=== PATIENT | male | born 1995 ===

== ENCOUNTER 2018-03-04 19:36 | Emergency (ER) | payer MEDICAID ==
[2018-03-04 19:44] VITALS: BP 103/70; PULSE 116; RESP 18; O2SAT 96
[2018-03-04] MEDS ORDERED: Sodium Chloride 0.9% 1,000 ML IV ONE ×2 (19:58)
--- NOTE | 2018-03-04 20:02 | C.PDOC ---
History Of Present Illness <Anand Muller - Last Filed: 03/04/18 22:26> <Payton Dominguez - Last Filed: 03/07/18 12:33> 22 year old male presents to the ED c/o diarrhea for the past 4-5 days. Patient states he came from [facility] one week ago. Patient denies any pain at this time. Patient denies fever, chills, nausea, vomit, abdominal dysuria, hematuria. (Anand Muller) History Per: Patient History/Exam Limitations: no limitations Onset/Duration Of Symptoms: Days Current Symptoms Are (Timing): Still Present Location Of Pain/Discomfort: Diffuse Quality Of Discomfort: "Pain" Associated Symptoms: Diarrhea. denies: Nausea, Vomiting, Urinary Symptoms Alleviating Factors: None Recent travel outside of the [place]: Yes ([facility] 1 week ago) Additional History Per: Patient <Anand Muller - Last Filed: 03/04/18 22:26> <Silvia Dominguezerie - Last Filed: 03/07/18 12:33> Chief Complaint (Nursing): GI Problem Past Medical History Reviewed: Historical Data, Nursing Documentation, Vital Signs - Medical History PMH: No Chronic Diseases Surgical History: No Surg Hx Family History: States: Unknown Family Hx - Social History Hx Alcohol Use: Yes Hx Substance Use: Yes - Immunization History Hx Tetanus Toxoid Vaccination: No Hx Influenza Vaccination: No Hx Pneumococcal Vaccination: No <Anand Muller - Last Filed: 03/04/18 22:26> Vital Signs: Last Vital Signs Temp 99.7 F H 03/04/18 20:57 Pulse 116 H 03/04/18 19:41 Resp 18 03/04/18 19:41 BP 103/70 03/04/18 19:41 Pulse Ox 96 03/04/18 22:26 Review Of Systems Constitutional: Negative for: Fever, Chills Cardiovascular: Negative for: Chest Pain Respiratory: Negative for: Shortness of Breath Gastrointestinal: Positive for: Diarrhea. Negative for: Nausea, Vomiting, Abdominal Pain Genitourinary: Negative for: Dysuria, Hematuria Skin: Negative for: Rash <Anand Muller - Last Filed: 03/04/18 22:26> Physical Exam - Physical Exam Appears: Non-toxic, No Acute Distress Skin: Normal Color, Warm, Dry Head: Atraumatic, Normacephalic Eye(s): bilateral: Normal Inspection Oral Mucosa: Moist Neck: Normal ROM, Supple Chest: Symmetrical Cardiovascular: Rhythm Regular Respiratory: No Normal Breath Sounds, No Rales, No Rhonchi, No Wheezing Gastrointestinal/Abdominal: Bowel Sounds (hyperactive), Soft, Tenderness (mild LUQ), No Guarding, No Rebound Back: No CVA Tenderness Extremity: Normal ROM, No Tenderness, No Swelling Neurological/Psych: Oriented x3, Normal Speech Gait: Steady <Anand Muller R - Last Filed: 03/04/18 22:26> ED Course And Treatment - Laboratory Results Result Diagrams: 03/04/18 20:02 03/04/18 20:02 O2 Sat by Pulse Oximetry: 96 (ON RA) Pulse Ox Interpretation: Normal <Anand Muller R - Last Filed: 03/04/18 22:26> - Laboratory Results Result Diagrams: 03/04/18 20:02 03/04/18 20:02 <Payton Dominguez - Last Filed: 03/07/18 12:33> Medical Decision Making <Anand Muller R - Last Filed: 03/04/18 22:26> <Payton Dominguez - Last Filed: 03/07/18 12:33> Medical Decision Making: Plan: * Labs * IV fluids * Tylenol 975 mg PO * Stool culture * Urine culture * UA (Irena Mullerel R) Disposition Counseled Patient/Family Regarding: Diagnosis - Disposition Disposition Time: 22:23 - POA Present On Arrival: None <RenzoIrenaAnand R - Last Filed: 03/04/18 22:26> <Payton Dominguez - Last Filed: 03/07/18 12:33> - Disposition Referrals: Non [facility] Provider, [Non-Staff] - [facility] [Outside] Disposition: HOME/ ROUTINE Condition: STABLE Prescriptions: Ciprofloxacin [Cipro] 1 tab PO BID #14 tab Instructions: Diarrhea and Traveler's Diarrhea, Adult (DC), Acetaminophen Forms: [employer] (Turkish) - Clinical Impression Clinical Impression: Gastroenteritis, Infectious diarrhea in adult patient - Scribe Statement The provider has reviewed the documentation as recorded by the Scribe <Anand Muller R - Last Filed: 03/04/18 22:26> <Payton Dominguez - Last Filed: 03/07/18 12:33> - Scribe Statement Carlos Nascimento All medical record entries made by the Scribe were at my direction and personally dictated by me. I have reviewed the chart and agree that the record accurately reflects my personal performance of the history, physical exam, medical decision making, and the department course for this patient. I have also personally directed, reviewed, and agree with the discharge instructions and disposition. (Anand Muller) Addendum <Anand Muller - Last Filed: 03/04/18 22:26> <Payton Dominguez - Last Filed: 03/07/18 12:33> Addendum: 03/07/18 12:32 Received call from Microbiology. Stool culture (+) for Shigella sonnei, sensitive to Cipro. Reviewed chart, patient was discharged home on Cipro 500mg BID x 7 days. Patients treatment is appropriate, no further action needed at this time. (Payton Dominguez)
[2018-03-04 20:05] LABS: BASO # 0.1 K/uL (0.0-0.2); BASO % 0.5 % (0.0-2.0); EOS % 0.2 % (0.0-4.0); HEMOGLOBIN 15.5 g/dL (12.0-18.0); LYMPH # 1.6 K/uL (1.0-4.3); LYMPH % 15.1 % (20.0-40.0); MEAN CELL VOLUME 81.2 fL (80.0-94.0); MEAN CORPUSCULAR HEMOGLOBIN 27.8 pg (27.0-31.0); MEAN CORPUSCULAR HGB CONC 34.2 g/dL (33.0-37.0); MEAN PLATELET VOLUME 7.1 fL (7.2-11.7); MONO # 1.5 K/uL (0.0-0.8); NEUT # 7.5 K/uL (1.8-7.0); NEUT % 70.2 % (50.0-75.0); NRBC % 0.1 % (0.0-2.0); RBC 5.58 Mil/uL (4.40-5.90); RED CELL DISTRIBUTION WIDTH 14.3 % (11.5-14.5); WHITE BLOOD COUNT 10.7 K/uL (4.8-10.8)
[2018-03-04] MEDS ORDERED: Sodium Chloride 0.9% 1,000 ML ONE (20:05)
[2018-03-04 20:14] LABS: URINE BILIRUBIN NEGATIVE (NEGATIVE); URINE BLOOD NEGATIVE (NEGATIVE); URINE CLARITY Clear (Clear); URINE COLOR Straw (YELLOW); URINE GLUCOSE (UA) NORMAL (Normal); URINE LEUKOCYTE ESTERASE NEG Leu/uL (Negative); URINE PROTEIN NEGATIVE (NEGATIVE); URINE UROBILINOGEN NORMAL mg/dL (0.2-1.0)
[2018-03-04 20:19] LABS: ALB/GLOB RATIO 1.4 (1.0-2.1); ALBUMIN 4.7 g/dL (3.5-5.0); ALT/SGPT 24 U/L (21-72); AST/SGOT 31 U/L (17-59); BLOOD UREA NITROGEN 5 mg/dL (9-20); CALCIUM 9.4 mg/dl (8.6-10.4); GFR NON-AFRICAN AMERICAN > 60; LIPASE 34 U/L (23-300)
[2018-03-04 21:01] VITALS: TEMP 99.7
== END 2018-03-04 22:56 | disposition home or self-care (01) ==
LOC: SUPCPDRO 19:36 → C.ER 19:36
DX: A09 Infectious gastroenteritis and colitis, unspecified (principal)
CPT/HCPCS: 80053; 81001; 83690; 85025; 87045; 87086; 96360; 99285; J7030